=== PATIENT | male | born 1975 | race Caucasian/White ===

== ENCOUNTER 2018-04-20 02:52 | Emergency (ER) | payer BC ==
[~2018-04-20] VITALS: Ht 190.5 cm; Wt 104.3 kg
[~2018-04-20 02:52] MED LIST: METHOCARBAMOL500 M1 PO; Motrin,Rufen800 MG PO; NORCO 5-325 TA1 EACH PO; OXYCODONE AND A1 TAB PO; Orphenadrine C100 MG PO
[2018-04-20] MEDS ORDERED: VITAMIN D-32000 UNI1 PO (03:11)
[2018-04-20] MEDS ORDERED: ATORVASTATIN CA20 M1 PO (03:12)
[2018-04-20] MEDS ORDERED: BENZONATATE100 M1 PO (03:12)
[2018-04-20] MEDS ORDERED: AUGMENTIN 875875 MG PO (03:12)
[2018-04-20] MEDS ORDERED: 24 HOUR ALLER15.8 ML INH (03:13)
== END 2018-04-20 04:58 | disposition home or self-care (01) ==
LOC: ED 02:52
DX: J01.00 Acute maxillary sinusitis, unspecified (principal); F17.200 Nicotine dependence, unspecified, uncomplicated; Z79.2 Long term (current) use of antibiotics; Z79.899 Other long term (current) drug therapy